=== PATIENT | male | born 1930 | race Hispanic/Latino ===

== ENCOUNTER 2018-04-14 08:47 | Inpatient (IN) | payer MEDICARE, OTHER ==
[~2018-04-14] VITALS: Ht 147.3 cm; Wt 61.7 kg
[~2018-04-14 08:47] MED LIST: ACYCLOVIR400 MG PO; GABAPENTIN300 MG PO; LOSARTAN-HCTZ1 EACH PO
[2018-04-14 09:56] LABS: BASOPHILS % 0.2 % (0.0-1.0); EOSINOPHILS % 0.1 % (0.0-6.0); HEMATOCRIT 40.8 % (38.2-49.6); HEMOGLOBIN 13.5 g/dL (14.0-18.0); MEAN CORPUSCULAR HEMOGLOBIN 29.2 pg (28-32); MEAN CORPUSCULAR HGB CONC 33.1 g/dL (31-35); MEAN CORPUSCULAR VOLUME 88.3 fL (81-99); MONOCYTES # (AUTO) 1.1 (0.2-0.8); MONOCYTES % 6.6 % (4.4-11.3); NEUTROPHILS # (AUTO) 14.1 (2.1-6.9); NEUTROPHILS % 86.6 % (38.7-80.0); PLATELET COUNT 135 x10e3/uL (140-360); RED BLOOD COUNT 4.62 x10e6/uL (4.3-5.7); RED CELL DISTRIBUTION WIDTH 13.6 % (11.7-14.4)
[2018-04-14 10:15] LABS: ALBUMIN 3.3 g/dL (3.5-5.0); ALBUMIN/GLOBULIN RATIO 0.7 (0.8-2.0); ANION GAP 20.8 mmol/L (8-16); CALCIUM 10.2 mg/dL (8.4-10.2); CREATININE, SERUM 2.62 mg/dL (0.72-1.25); POTASSIUM 4.8 mmol/L (3.5-5.1)
[2018-04-14 10:22] LABS: CREATINE KINASE MB 1.2 ng/mL (0-5.0)
--- NOTE | 2018-04-14 10:38 | Diagnostic Imaging Report ---
PROCEDURE: X-RAY CHEST, TWO VIEWS COMPARISON: None. INDICATIONS: SOB TODAY FINDINGS: The lungs are hyperinflated with flattening of diaphragms and increased AP diameter of the chest. No focal consolidation, pleural effusion, or pneumothorax. Coarse diffuse prominence of the pulmonary interstitium. Prominence of the central pulmonary arteries; tortuosity and atherosclerotic calcification of the thoracic aorta. Normal heart size. No acute osseous abnormality. CONCLUSION: No acute cardiopulmonary abnormality. Pulmonary hyperinflation suggestive of COPD with associated probably chronic age-related fibrotic changes. Dictated by: Scott Wilder M.D. on 04/14/2018 at 10:40 Electronically approved by: Scott Wilder M.D. on 04/14/2018 at 10:40
[2018-04-14 13:55] LABS: CLARITY,URINE HAZY (CLEAR); COLOR,URINE YELLOW (YELLOW); LEUKOCYTE ESTERASE ,URINE NEGATIVE (NEGATIVE); NITRITE,URINE NEGATIVE (NEGATIVE); PROTEIN,URINE DIPSTICK NEGATIVE (NEGATIVE)
[2018-04-14 13:56] LABS: BILIRUBIN,URINE 1+ (NEGATIVE); KETONES,URINE TRACE (NEGATIVE); URINE UROBILINOGEN 0.2 mg/dL (0.2 - 1)
[2018-04-14 14:15] LABS: AMORPHOUS SEDIMENT,URINE MODERATE (FEW); BACTERIA,URINE FEW /HPF; EPITHELIAL CELLS,URINE MODERATE /LPF; WBC,URINE (MAN) 0-5 /HPF (0-5)
--- OUTSIDE RECORDS SUMMARY | 2018-04-14 15:15 | XMS REPORT ---
Author Author [facility] Address Unknown Phone Unavailable Care Team Providers Care Endocrinologist Name Role Phone OMER HANSON Unavailable Unavailable Problems This patient has no known problems. Allergies, Adverse Reactions, Alerts This patient has no known allergies or adverse reactions. Medications This patient has no known medications. Results Test Description Test Time Test Comments Text Results Atomic Results Result Comments CHEST 2 VIEWS [place] [address] Patient Name: VALENCIA SLATER MR #: [id number] : 1930 Age/Sex: 87/M Req #: [id number] Adm Physician: Ordered by: OMER HANSON MD Report #: [id number] Location: ER Room/Bed: Procedure: [id number] DX/CHEST 2 VIEWS Exam Date: 04/14/18 Exam Time: 1000 REPORT STATUS: Signed PROCEDURE: X-RAY CHEST, TWO VIEWS COMPARISON: None. INDICATIONS: SOB TODAY FINDINGS: The lungs are hyperinflated with flattening of diaphragms and increased AP diameter of the chest. No focal consolidation, pleural effusion, or pneumothorax. Coarse diffuse prominence of the pulmonary interstitium. Prominence of the central pulmonary arteries; tortuosity and atherosclerotic calcification of the thoracic aorta. Normal heart size. No acute osseous abnormality. CONCLUSION: No acute cardiopulmonary abnormality. Pulmonary hyperinflation suggestive of COPD with associated probably chronic age-related fibrotic changes. Dictated by: Supriya Wilder M.D. on at 10:40 Electronically approved by: Supriya Wilder M.D. on 2017 at 10:40 Dictated By: SUPRIYA WILDER MD 1040 Transcribed By: PETER on 04/14/18 1040 COPY TO: OMER HANSON MD
--- NOTE | 2018-04-14 15:57 | History and Physical ---
Mr. Webb is an 87-year-old man with a history of dementia, urinary incontinence, BPH, hypertension, hyperlipidemia. He was brought to the emergency room because of a 2-week history of cough with phlegm, decreased appetite and weight loss in the last couple of weeks. PAST MEDICAL HISTORY: The patient has hypertension, dementia, urinary incontinence, hyperlipidemia, reflux and BPH. SOCIAL HISTORY: He lives at home alone. He does not smoke, and he does not drink. SURGICAL HISTORY: He had eye surgery in the past. ALLERGIES: NO KNOWN DRUG ALLERGIES. PHYSICAL EXAMINATION GENERAL: Today, he is awake and alert. VITALS: Temperature is 97.8. Blood pressure is 94/55. The heart is regular rate. O2 oxygenation is 98% with nasal cannula. LUNGS: Decreased breath sounds bilaterally. ABDOMEN: Soft but with some positive lower extremity edema. No erythema. BLOOD WORK: White count 16.25, hemoglobin 13.5, hematocrit 40.8. Sodium 125, creatinine 2.62, GFR 23, BUN 83, glucose 130. Urine shows 0-5 white blood cells. Chest x-ray shows no acute findings. ASSESSMENT AND PLAN 1. Failure to thrive. 2. Dehydration. 3. Acute renal failure. 4. Leukocytosis. 5. Weight loss. 6. Cough and phlegm. 7. Hypertension. 8. Dementia. 9. BPH. 10. At the present time, the patient is a little hypotensive. The plan at the present time is to hold all the blood pressure medications. Put the patient empirically on IV antibiotics. Repeat CBC. Nephrology consult with Dr. Pierce and ID consult with Dr. Bella. All of this was discussed with the patient and daughter at bedside. All questions were answered to satisfaction. Job#: [id number]
[2018-04-14 16:45] VITALS: BP 103/50
[2018-04-14 16:47] VITALS: BP 103/50
[2018-04-14 16:52] VITALS: BP 103/50
[2018-04-14 16:56] VITALS: BP 103/50
[2018-04-14] MEDS ORDERED: DOXAZOSIN MESYLA2 MG PO (17:00)
[2018-04-14] MEDS ORDERED: NAMENDA10 MG PO (17:00)
[2018-04-14] MEDS ORDERED: OMEPRAZOLE40 MG PO (17:00)
[2018-04-14] MEDS ORDERED: TAMSULOSIN HCL0.4 MG PO (17:00)
[2018-04-14] MEDS ORDERED: LOSARTAN POTASS25 MG PO (17:02)
[2018-04-14] MEDS ORDERED: FINASTERIDE5 MG PO (17:02)
[2018-04-14] MEDS ORDERED: OXYBUTYNIN CHLOR5 MG PO (17:02)
[2018-04-14] MEDS: SODIUM CHLORIDE 0.9% 1000ML 1,000 ML IV SCH (17:11)
[2018-04-14] MEDS ORDERED: DIATRIZOATE MEGL/DIATRIZOA SOD 30 ML BTL PO ONE (18:00)
[2018-04-14 18:21] LABS: AMYLASE 81 U/L (25-125); LIPASE 37 U/L (8-78)
[2018-04-14] MEDS: CEFTRIAXONE SOD 1 GM VIAL IV SCH (18:25)
[2018-04-14 20:00] VITALS: BP 94/50
[2018-04-15] VITALS (8 sets, daily range): BP systolic 94–109; BP diastolic 46–64
--- NOTE | 2018-04-15 02:03 | Diagnostic Imaging Report ---
EXAM: CT Abdomen and Pelvis WITHOUT contrast INDICATION: Bronchitis, dehydration, abdominal infection COMPARISON: None. TECHNIQUE: Abdomen and pelvis were scanned utilizing a multidetector helical scanner from the lung base to the pubic symphysis without administration of IV contrast. Absence of intravenous contrast decreases sensitivity for detection of focal lesions and vascular pathology. Coronal and sagittal reformations were obtained. Stone protocol is performed. IV CONTRAST: None. ORAL CONTRAST: Gastrografin RADIATION DOSE: Total DLP: 226.07 mGy*cm Estimated effective dose: (DLP x 0.015 x size factor) mSv COMPLICATIONS: None FINDINGS: LINES and TUBES: None. LOWER THORAX: Patchy interstitial and alveolar opacities predominantly in the lung bases. Heavy calcification involving the mitral valve. HEPATOBILIARY: No focal hepatic lesions. No biliary ductal dilation. Biliary air is present. This finding can be seen in patients with cholecystectomy and prior ampulla resection. GALLBLADDER: There are cholecystectomy clips. SPLEEN: No splenomegaly. PANCREAS: No focal masses or ductal dilatation. ADRENALS: No adrenal nodules KIDNEYS/URETERS: No hydronephrosis. No cystic or solid mass lesions. 3.7 mm stone in the inferior renal collecting system of the left kidney. GI TRACT: No abnormal distention, wall thickening, or evidence of bowel obstruction. There are diverticula within the colon without evidence of diverticulitis. Appendix is normal. PELVIC ORGANS/BLADDER: Prostatomegaly. LYMPH NODES: No lymphadenopathy. VESSELS: There is moderate atherosclerotic disease in the aorta and major arterial branches. PERITONEUM / RETROPERITONEUM: No free air or fluid. BONES: There are degenerative changes in the lumbar spine. SOFT TISSUES: Right fat containing direct inguinal hernia. IMPRESSION: 1. Left-sided nephrolithiasis without hydronephrosis. 2. Prostatomegaly. 3. Moderate atherosclerotic disease of the thoracoabdominal aorta and branches. 4. Patchy interstitial and alveolar opacities in the lung bases are indeterminate but may be related to atelectasis or infection. Signed by: Dr. Trung Robertson M.D. on 04/15/2018 1:59 AM
[2018-04-15] MEDS: SODIUM CHLORIDE 0.9% 1000ML 1,000 ML IV SCH ×2 (04:25→12:23)
[2018-04-15 06:30] LABS: ANION GAP 12.5 mmol/L (8-16); CALCIUM 8.5 mg/dL (8.4-10.2); CREATININE, SERUM 1.79 mg/dL (0.72-1.25); POTASSIUM 4.5 mmol/L (3.5-5.1)
[2018-04-15 09:29] LABS: BASOPHILS % 0.4 % (0.0-1.0); EOSINOPHILS # (AUTO) 0.2 (0.0-0.4); EOSINOPHILS % 2.4 % (0.0-6.0); HEMATOCRIT 29.7 % (38.2-49.6); HEMOGLOBIN 9.6 g/dL (14.0-18.0); LYMPHOCYTES # (AUTO) 1.5 (1.0-3.2); LYMPHOCYTES % 18.6 % (18.0-39.1); MEAN CORPUSCULAR HEMOGLOBIN 28.8 pg (28-32); MEAN CORPUSCULAR HGB CONC 32.3 g/dL (31-35); MEAN CORPUSCULAR VOLUME 89.2 fL (81-99); MONOCYTES # (AUTO) 0.8 (0.2-0.8); MONOCYTES % 10.7 % (4.4-11.3); NEUTROPHILS # (AUTO) 5.3 (2.1-6.9); NEUTROPHILS % 67.6 % (38.7-80.0); PLATELET COUNT 100 x10e3/uL (140-360); RED BLOOD COUNT 3.33 x10e6/uL (4.3-5.7); RED CELL DISTRIBUTION WIDTH 13.9 % (11.7-14.4)
--- NOTE | 2018-04-15 10:34 | Progress Note ---
DATE: April 15, 2018 SUBJECTIVE: Mr. Webb is an 87-year-old man with history of dementia, urinary incontinence, BPH, hypertension, hyperlipidemia, came to the emergency room with 2 weeks history of cough with phlegm, decreased appetite, and weight loss. PHYSICAL EXAMINATION: GENERAL: Today, he is more awake and alert. VITAL SIGNS: Temperature is 97, blood pressure 97/46. HEART: Regular rate. LUNGS: Poor inspiratory effort. ABDOMEN: Soft. BLOOD WORK: Potassium is 4.5, creatinine is 1.79, glucose is 90. White count is 16.2, hemoglobin is 13.5, hematocrit is 40.8, platelets 125,000. Urine showed 0 to 5 white blood cells. Urine culture and blood cultures are pending. Chest x-ray showed no acute finding. Abdominal and pelvic CT showed left-sided nephrolithiasis without hydronephrosis, prostatomegaly, atherosclerosis, patchy interstitial and alveolar opacities of the lung bases that probably could be pneumonia. ASSESSMENT: 1. Failure to thrive. 2. Dehydration. 3. Acute renal failure. 4. Leukocytosis. 5. Weight loss. 6. Probable pneumonia. 7. History of hypertension, patient is hypotensive. 8. Dementia. 9. Benign prostatic hypertrophy. PLAN: At present time is to hold all the blood pressure medications. Continue IV antibiotics. Continue to monitor white count. Infectious disease and a nephrology consult were requested for the patient. All this was discussed with patient and family. All questions were answered to satisfaction. Job#: [id number]
[2018-04-15] MEDS: CEFTRIAXONE SOD 1 GM VIAL IV SCH (17:52)
[2018-04-16] VITALS (8 sets, daily range): BP systolic 101–142; BP diastolic 43–84
[2018-04-16] MEDS: SODIUM CHLORIDE 0.9% 1000ML 1,000 ML IV SCH ×3 (00:19→16:27)
--- NOTE | 2018-04-16 10:25 | Consultation ---
DATE OF CONSULTATION: April 14, 2018 REASON FOR CONSULTATION: UTI. HISTORY OF PRESENT ILLNESS: This is an 87-year-old male with history of dementia, urinary incontinence, benign prostatic hypertrophy, hypertension, hyperlipidemia. According to the family for the last 2 weeks she has not been feeling well, not eating well. Getting more and more weaker and bed bound, which was not really his case. The patient was brought to the emergency room, In the emergency room, he had a white count of 16.25, hemoglobin 13, sodium 135, potassium 4.5, creatinine 2.62. The patient was admitted. His urine was positive for bilirubin and epithelial cells. His chest x-ray showed no acute finding, but he does have underlying COPD. The patient is currently alert, follows simple commands, does not seem to be in acute distress. PHYSICAL EXAMINATION: VITALS: Stable and currently afebrile. HEENT: Not icteric. NECK: Supple. CHEST: Clear. HEART: No murmur. ABDOMEN: Soft. Positive bowel sounds. EXTREMITIES: No edema. SKIN: No rash. IMPRESSION: 1. Altered mental status. 2. Leukocytosis. Source is unclear. It could be urinary tract infection versus other. PLAN: Will get blood cultures, urine cultures. Obtain CT of the abdomen and pelvis with oral contrast only. Check CBC and check chem panel, check amylase and lipase. Discussed with the family. Will follow. Job#: [id number]
--- NOTE | 2018-04-16 10:30 | Progress Note ---
DATE: April 16, 2018 SUBJECTIVE: Mr. Webb is an 87-year-old man with history of urinary incontinence, BPH, hypertension, hyperlipidemia, and dementia. He came to the emergency room with cough and phlegm, weight loss, and decreased appetite. At the present time, he is doing a little better. He is eating a little better. PHYSICAL EXAMINATION VITAL SIGNS: Temperature is 97.6, blood pressure 125/63. HEART: Regular rate at 82 per minute. LUNGS: Clear to auscultation. ABDOMEN: Soft. LABS: On the blood work, potassium is 4.5. Creatinine went down to 1.79. Glucose is 90. White count is 7.85, hemoglobin 9.6, hematocrit 29.7. Chest x-ray shows no acute findings. Abdominal and pelvic CT shows prostatomegaly, patchy interstitial and alveolar opacities of the lungs. ASSESSMENT AND PLAN 1. Failure to thrive. 2. Dehydration. 3. Acute renal failure. 4. Leukocytosis. 5. Weight loss. 6. Probable pneumonia. 7. History of hypertension. He has been hypotensive. He is doing better. 8. Dementia. 9. BPH. 10. Anemia. The plan at the present time is to continue the patient on IV antibiotics. White count now is normal. Creatinine went down to 1.79. We are going to do stool guaiac because the patient is also anemic. Discussed with daughter. She wants vocational case manager evaluation for probable care home placement. Continue to monitor for any fever and hypertension. All of this was discussed with the daughter at bedside, and all questions were answered to satisfaction. Job#: [id number]
[2018-04-16] MEDS: CEFTRIAXONE SOD 1 GM VIAL IV SCH (18:58)
[2018-04-16 19:00] LABS: FERRITIN 608.68 ng/mL (21.81-274.66)
[2018-04-17] VITALS (7 sets, daily range): BP systolic 113–166; BP diastolic 55–77
--- NOTE | 2018-04-17 00:49 | Consultation ---
DATE OF CONSULTATION: April 16, 2018 HISTORY: Patient is an 87-year-old male with past medical history of dementia, urinary incontinence, hypertension, hyperlipidemia, and BPH, GERD, who was brought to the emergency room yesterday due to 2-week history of cough as well as weight loss and decreased appetite. Daughter is in the room and majority of the history was taken from the daughter. She states that he has not been eating much and has lost about 10 pounds. She denies noticing any signs of bleeding such as melena, hematochezia, or hematemesis. He denies any abdominal pain, chest pain, or shortness of breath. She states that he has been dehydrated and feeling weak. She denies noticing him having any EGD or colonoscopies in the past. PAST MEDICAL HISTORY: Hypertension, dementia, urinary incontinence, GERD, BPH, hyperlipidemia. SOCIAL HISTORY: He lives at home by himself without any care. There is no history of smoking or drinking. However, she does mention he was a former smoker and does not recall how much he smoked in the past. SURGICAL HISTORY: He has had a cataract surgery. ALLERGIES: NO KNOWN DRUG ALLERGIES. REVIEW OF SYSTEMS: Denies any chest pain, abdominal pain, dysuria, dysphagia, hematemesis, melena, or hematochezia. PHYSICAL EXAMINATION: GENERAL: Alert, disoriented. VITAL SIGNS: Temperature 96.6, pulse 51, blood pressure 106/47, pulse ox 95. LUNGS: Decreased breath sounds bilaterally. ABDOMEN: Soft. Bowel sounds active. Nontender. No mass or herniations. NEUROLOGY: Alert, but disoriented. EXTREMITIES: No edema, no cyanosis. PSYCH: Unable to assess. LABS: Patient has a white count of 7.8, hemoglobin dropped from 13.5 to 9.6, MCV of 89. Sodium of 132, anion gap 12.5, creatinine is 1.79, albumin is 3.3, AST 9, ALT is 10. IMAGING REVIEW: Abdominal CT showed left-sided nephrolithiasis, however, no GI abnormalities noted. Chest x-ray showed no acute findings. ASSESSMENT: 1. Anemia--drop in hemoglobin. 2. Failure to thrive. 3. Dehydration. 4. Acute renal failure. 5. Weight loss. 6. Dementia. PLAN: At this point, the patient's hemoglobin is stable. We will monitor closely. We will go ahead and order iron studies to figure out what is causing the anemia. Fecal occult blood is pending. Once we have results, we can further assess the need for endoscopy. Thank you for consulting me. Will follow. Dictated By: Edita Jacobo PA-C Job#: [id number]
[2018-04-17] MEDS: SODIUM CHLORIDE 0.9% 1000ML 1,000 ML IV SCH ×3 (02:16→23:00)
[2018-04-17 06:48] LABS: HEMATOCRIT 29.7 % (38.2-49.6); HEMOGLOBIN 9.7 g/dL (14.0-18.0); MEAN CORPUSCULAR HGB CONC 32.7 g/dL (31-35); MEAN CORPUSCULAR VOLUME 88.7 fL (81-99); PLATELET COUNT 97 x10e3/uL (140-360); RED BLOOD COUNT 3.35 x10e6/uL (4.3-5.7); RED CELL DISTRIBUTION WIDTH 13.7 % (11.7-14.4)
[2018-04-17 07:26] LABS: BLOOD UREA NITROGEN 22 mg/dL (7-26); BUN/CREATININE RATIO 24 (6-25); CALCIUM 8.5 mg/dL (8.4-10.2); CARBON DIOXIDE 22 mmol/L (22-29); CHLORIDE 109 mmol/L (98-107); EST GLOMERULAR FILTRATION RATE > 60 ML/MIN (60-); GLUCOSE 83 mg/dL (74-118); SODIUM 138 mmol/L (136-145)
[2018-04-17 07:41] LABS: EOSINOPHILS % (MANUAL) 3 % (0-7); LYMPHOCYTES % (MANUAL) 14 % (19-48); MONOCYTES % (MANUAL) 11 % (3.4-9.0); NEUTROPHILS % (MANUAL) 72 % (40-74)
[2018-04-17 07:42] LABS: HYPOCHROMASIA SLIGHT; PLATELET ESTIMATE SLIGHTLY DECREASED; PLATELET MORPHOLOGY COMMENT FEW LARGE; RBC MORPHOLOGY COMMENT NORMAL
[2018-04-17] MEDS ORDERED: BISACODYL 5 MG TAB EC PO ONE (09:00)
[2018-04-17] MEDS ORDERED: PEG (High)/E-LYTE SOLN 4,000 ML BTL PO ONE (09:00)
--- NOTE | 2018-04-17 09:52 | Progress Note ---
DATE: April 17, 2018 SUBJECTIVE: Patient is not eating, denying any abdominal pain. He has not had any bowel movement as well. REVIEW OF SYSTEMS GENERAL: No fever or chills. RESPIRATORY: No cough or expectoration. CVS: No chest pain or palpitations. INPATIENT MEDICATIONS: Reviewed as per MAR. PHYSICAL EXAMINATION VITAL SIGNS: Temperature 98, pulse 56, respirations 20, blood pressure 143/77, oxygen saturation 97% on room air. GENERAL: Not in any acute distress, sitting up. HEENT: Oral mucosa is moist. Anicteric sclerae. CVS: S1 and S2 regular. LUNGS: Grossly clear. ABDOMEN: Soft. Nondistended and nontender. No mass or hernia. Positive bowel sounds. EXTREMITIES: Warm. No leg edema. LABS: WBC 4.8, hemoglobin 9.7 which is up from 9.6, hematocrit 29.7, platelet count 97. Sodium 138, potassium 4.0, chloride 109, bicarb 22, BUN 22, creatinine 0.90. IMPRESSION 1. Anemia without any gross gastrointestinal bleeding. Hemoglobin initially dropped from 13.5 to 9.6, likely due to hemoconcentration, which resolved with IV fluid hydration. So the patient has anemia at baseline to begin with. Iron profile is not consistent with iron deficiency. However, anemia can be multifactorial. It seems like the patient most likely has anemia of chronic disease. 2. 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 3. Acute urinary retention, likely related to medication. He is status post Gomez insertion. 4. The patient is also on ceftriaxone for probability of pneumonia. PLAN: From GI standpoint, I will put him on a clear liquid diet tonight and bowel prep. EGD and colonoscopy tomorrow to rule out any source of blood loss contributing to anemia. I discussed the risks, benefits and alternatives including doing nothing with the patient's daughter visiting at the bedside. Job#: [id number]
--- NOTE | 2018-04-17 09:55 | Progress Note ---
DATE: April 17, 2018 Mr. Webb is an 87-year-old man with a history of urinary incontinence, BPH, hypertension, hyperlipidemia, dementia, came to the emergency room with cough, weight loss and decreased appetite. He was found to be anemic. He is going to go for an EGD and colonoscopy. The patient is having trouble urinating. We are going to put in a Gomez catheter and request a urology consult for him. fur floor worker was consulted for placement of this patient. PHYSICAL EXAMINATION GENERAL: He is awake and alert. VITALS: Temperature is 98.8, blood pressure 143/77. HEART: Regular rate. LUNGS: Poor inspiratory effort. ABDOMEN: Soft. BLOOD WORK: Potassium 4, creatinine is 0.9, glucose is 83. White count is 4.87, hemoglobin 9.7, hematocrit 29.7. ASSESSMENT AND PLAN 1. Failure to thrive. 2. Dehydration. 3. Acute renal failure. 4. Leukocytosis. 5. Weight loss. 6. Anemia. 7. Pneumonia. 8. History of hypertension. 9. Dementia. 10. BPH. PLAN: At the present time, is the patient is having urinary retention. We are going to put in a Gomez catheter and get a urology consult. He also does not have any appetite. He is losing weight. He does not want to eat. He is anemic. He is going to have an EGD and colonoscopy done. We are going to continue IV antibiotics. Discussed with the case maker regarding placement. Continue IV antibiotics. All of this was discussed with the patient and daughter at bedside. All questions were answered to satisfaction. Job#: [id number] NORBERTO
[2018-04-17] MEDS: CEFTRIAXONE SOD 1 GM VIAL IV SCH (17:32)
[2018-04-17] MEDS ORDERED: PEG (High)/E-LYTE SOLN 4,000 ML BTL PO SCH (19:00)
[2018-04-18] VITALS (8 sets, daily range): BP systolic 127–162; BP diastolic 64–70
[2018-04-18] MEDS: SODIUM CHLORIDE 0.9% 1000ML 1,000 ML IV SCH (09:46)
--- NOTE | 2018-04-18 10:06 | Progress Note ---
DATE: April 18, 2018 SUBJECTIVE: Mr. Webb is an 87-year-old man with history of BPH, hypertension, hyperlipidemia and dementia. He came to the emergency room with cough, weight loss and decreased appetite. He was found to be anemic. He is going to go for EGD and colonoscopy today. He had urinary retention and required a Gomez catheter. At the present time, the patient is sleeping and in no acute distress. PHYSICAL EXAMINATION VITAL SIGNS: Temperature 98.2, blood pressure 127/64. HEART: Regular rate. LUNGS: Poor inspiratory effort. ABDOMEN: Soft. LABS: On the blood work, potassium is 4.0, creatinine 0.90, glucose 83. WBC 5.81, hemoglobin 9.7, hematocrit 29.7. ASSESSMENT AND PLAN 1. Failure to thrive. 2. Dehydration, resolving. 3. Acute renal failure, resolved. 4. Leukocytosis, resolved. 5. Weight loss. 6. Anemia. 7. Pneumonia. 8. History of hypertension. 9. Dementia. 10. BPH with urinary retention. The plan at the present time is the patient is going to go for EGD and colonoscopy. He has a Gomez catheter. We are going to discuss with Dr. Navarro regarding his urinary retention and continue his BPH medications. Continue IV antibiotics. Daughter wants the patient to go to SNF and probably stay in a group home. She is going to go visit some places. All of this was discussed with daughter a bedside, and all questions were answered to satisfaction. Job#: [id number]
[2018-04-18] MEDS: CEFTRIAXONE SOD 1 GM VIAL IV SCH (17:42)
[2018-04-19] VITALS (8 sets, daily range): BP systolic 123–155; BP diastolic 18–70
[2018-04-19] MEDS: PANTOPRAZOLE SOD 40 MG TABEC PO SCH (08:45)
[2018-04-19 10:47] LABS: BASOPHILS % 0.4 % (0.0-1.0); EOSINOPHILS # (AUTO) 0.1 (0.0-0.4); EOSINOPHILS % 2.1 % (0.0-6.0); HEMATOCRIT 32.1 % (38.2-49.6); HEMOGLOBIN 10.4 g/dL (14.0-18.0); LYMPHOCYTES % 17.2 % (18.0-39.1); MEAN CORPUSCULAR HEMOGLOBIN 28.7 pg (28-32); MEAN CORPUSCULAR HGB CONC 32.4 g/dL (31-35); MEAN CORPUSCULAR VOLUME 88.4 fL (81-99); MONOCYTES # (AUTO) 0.7 (0.2-0.8); MONOCYTES % 11.7 % (4.4-11.3); NEUTROPHILS # (AUTO) 3.8 (2.1-6.9); NEUTROPHILS % 68.2 % (38.7-80.0); PLATELET COUNT 106 x10e3/uL (140-360); RED BLOOD COUNT 3.63 x10e6/uL (4.3-5.7); RED CELL DISTRIBUTION WIDTH 13.8 % (11.7-14.4)
[2018-04-19] MEDS: SODIUM CHLORIDE 0.9% 1000ML 1,000 ML IV SCH ×2 (12:11→23:14)
[2018-04-19 13:08] LABS: ALANINE AMINOTRANSFERASE 9 IU/L (0-55); ALBUMIN 2.7 g/dL (3.5-5.0); ALBUMIN/GLOBULIN RATIO 0.8 (0.8-2.0); ALKALINE PHOSPHATASE 54 IU/L (40-150); ANION GAP 12.7 mmol/L (8-16); BLOOD UREA NITROGEN 8 mg/dL (7-26); BUN/CREATININE RATIO 9 (6-25); CALCIUM 8.4 mg/dL (8.4-10.2); CARBON DIOXIDE 19 mmol/L (22-29); CHLORIDE 109 mmol/L (98-107); CREATININE, SERUM 0.85 mg/dL (0.72-1.25); EST GLOMERULAR FILTRATION RATE > 60 ML/MIN (60-); GLUCOSE 145 mg/dL (74-118); POTASSIUM 3.7 mmol/L (3.5-5.1); SODIUM 137 mmol/L (136-145)
[2018-04-19] MEDS: CEFTRIAXONE SOD 1 GM VIAL IV SCH (17:28)
[2018-04-20] VITALS (8 sets, daily range): BP systolic 120–156; BP diastolic 58–77
[2018-04-20] MEDS: SODIUM CHLORIDE 0.9% 1000ML 1,000 ML IV SCH ×2 (01:00→15:03)
[2018-04-20 07:10] LABS: BASOPHILS % 0.3 % (0.0-1.0); EOSINOPHILS # (AUTO) 0.2 (0.0-0.4); HEMATOCRIT 30.4 % (38.2-49.6); HEMOGLOBIN 9.7 g/dL (14.0-18.0); LYMPHOCYTES # (AUTO) 1.3 (1.0-3.2); LYMPHOCYTES % 21.6 % (18.0-39.1); MEAN CORPUSCULAR HEMOGLOBIN 28.5 pg (28-32); MEAN CORPUSCULAR HGB CONC 31.9 g/dL (31-35); MEAN CORPUSCULAR VOLUME 89.4 fL (81-99); MONOCYTES # (AUTO) 0.9 (0.2-0.8); MONOCYTES % 15.4 % (4.4-11.3); NEUTROPHILS # (AUTO) 3.5 (2.1-6.9); NEUTROPHILS % 58.4 % (38.7-80.0); PLATELET COUNT 106 x10e3/uL (140-360)
[2018-04-20 07:19] LABS: ALANINE AMINOTRANSFERASE 9 IU/L (0-55); ALBUMIN 2.6 g/dL (3.5-5.0); ALBUMIN/GLOBULIN RATIO 0.9 (0.8-2.0); ALKALINE PHOSPHATASE 58 IU/L (40-150); ANION GAP 11.7 mmol/L (8-16); BLOOD UREA NITROGEN 5 mg/dL (7-26); BUN/CREATININE RATIO 6 (6-25); CALCIUM 8.4 mg/dL (8.4-10.2); CARBON DIOXIDE 21 mmol/L (22-29); CHLORIDE 110 mmol/L (98-107); CREATININE, SERUM 0.77 mg/dL (0.72-1.25); EST GLOMERULAR FILTRATION RATE > 60 ML/MIN (60-); GLUCOSE 89 mg/dL (74-118); POTASSIUM 3.7 mmol/L (3.5-5.1); SODIUM 139 mmol/L (136-145)
[2018-04-20] MEDS: PANTOPRAZOLE SOD 40 MG TABEC PO SCH (07:30)
[2018-04-20] MEDS: CEFTRIAXONE SOD 1 GM VIAL IV SCH (18:27)
[2018-04-21] VITALS (7 sets, daily range): BP systolic 128–162; BP diastolic 63–72
[2018-04-21] MEDS: PANTOPRAZOLE SOD 40 MG TABEC PO SCH (08:44)
--- NOTE | 2018-04-21 11:08 | Discharge Summary ---
Mr. Webb is an 87-year-old man with history of BPH, hypertension, hyperlipidemia, and dementia. He came to the emergency room with weight loss, decreased appetite, urinary retention. He was seen by the urologist that recommended he go to SNF with a Gomez catheter. The patient went for EGD that showed esophagitis, gastritis, hiatal hernia and esophageal diverticulum. At the present time, he is doing better. He is eating better. Temperature is 97.5, blood pressure 155/70. The heart has regular rhythm. Lungs are clear to auscultation. Abdomen is soft. On the blood work, the white count is 6.02, hemoglobin 9.7, hematocrit 30.4. Potassium 3.7, creatinine 0.77. Abdominal and pelvic CT done on admission showed left-sided nephrolithiasis without hydronephrosis, prostatomegaly, and some infiltration in the lung bases. DISCHARGE DIAGNOSES 1. Failure to thrive, improving. 2. Dehydration. 3. Acute renal failure, resolved. 4. Leukocytosis, resolved. 5. Weight loss. 6. Anemia, status post gastrointestinal workup. 7. Pneumonia. 8. History of hypertension. Came with hypotension, but this is better. 9. Dementia. 10. BPH with urinary retention. PLAN: At the present time, the patient went for EGD that showed esophagitis, esophageal diverticulum, hiatal hernia and gastritis. He also had a colonoscopy that showed diverticulosis, colonic polyps, uncomplicated internal and external hemorrhoids. He had a Gomez catheter placed for urinary retention. The plan at the present time is to send the patient to SNF. Daughter is aware of this, and she is agreeable with SNF if the patient gets discharged. Please see home medication reconciliation list. All of this was discussed with the patient and daughter at bedside, and all questions were answered to satisfaction. JAMES TOLBERT MD Job#: [id number]
[2018-04-21] MEDS: SODIUM CHLORIDE 0.9% 1000ML 1,000 ML IV SCH (13:17)
--- NOTE | 2018-04-21 18:14 | Diagnostic Imaging Report ---
PROCEDURE:X-RAY MODIFIED BARIUM SWALLOW COMPARISON:None. INDICATIONS:Bronchitis DISCUSSION:Fluoroscopic examination was performed in conjunction with speech pathology, during swallowing of a variety of thin and thick liquid consistencies. Fluoroscopy time: 54 seconds Cumulative air kerma : 2.79 mGy CONCLUSION:No penetration or aspiration. Please see the report from speech pathology for complete details. Dictated by: Lisandro Molina M.D. on 04/21/2018 at 18:17 Electronically approved by: Lisandro Molina M.D. on 04/21/2018 at 18:17
--- NOTE | 2018-04-21 20:15 | Progress Note ---
DATE: April 21, 2018 SUBJECTIVE: No active GI complaints. Tolerating oral foods. Regular bowel movements. REVIEW OF SYSTEMS: CVS: No chest pain or palpitation. GENERAL: No fever or chills. RESPIRATORY: No cough or expectoration. MEDICATIONS: Reviewed as per JAN. PHYSICAL EXAMINATION VITAL SIGNS: Temperature 98.3, pulse 64, respirations 18 to 20, blood pressure 144/60, oxygen saturation 100% on room air. GENERAL: Not in any acute distress. HEENT: Moist mucous membrane. Anicteric sclerae. NECK: No neck axillary adenopathy. CVS: S1 and S2 regular. LUNGS: Bilaterally grossly clear. ABDOMEN: Soft, nondistended, nontender, no mass or hernia. EXTREMITIES: Warm. No leg edema. LABS: Hemoglobin 10.4 on 04/19/2018, dropped down to 9.7. Modified barium swallow done today showed no penetration or aspiration. IMPRESSION: Anemia of chronic disease. Upper endoscopy as well as colonoscopy performed by my associate, Dr. Diego. The endoscopy did not reveal any source of blood loss. PLAN: Continue present management. Patient can be discharged home from GI standpoint. Job#: [id number]
[2018-04-22] VITALS: BP 140/63
[2018-04-22] MEDS: SODIUM CHLORIDE 0.9% 1000ML 1,000 ML IV SCH ×2 (03:28→16:00)
[2018-04-22 04:00] VITALS: BP 153/69
[2018-04-22] MEDS: PANTOPRAZOLE SOD 40 MG TABEC PO SCH (07:50)
[2018-04-22 08:25] VITALS: BP 126/62
--- NOTE | 2018-04-22 09:56 | Discharge Summary ---
Mr. Webb is an 87-year-old man with history of BPH, hypertension, hyperlipidemia, dementia, came to the emergency room with decreased appetite, weight loss. Had an EGD that showed esophagitis, gastritis and esophageal diverticulum. He was found to have urinary tract infection. Had a Gomez catheter placed, and was seen by urologist. He is going to need to follow up as an outpatient. PHYSICAL EXAMINATION GENERAL: Today, the patient is sleeping. No acute distress. VITALS: Temperature is 97.4, blood pressure 126/62. HEART: Regular rate. LUNGS: Poor inspiratory effort. ABDOMEN: Soft. BLOOD WOUND: White count is 6.02, hemoglobin 9.7, hematocrit 30.4. Sodium 139, creatinine is 0.77. Stool guaiac was negative. All the cultures were negative. The modified barium swallow showed no penetration or aspiration. DISCHARGE DIAGNOSES 1. Failure to thrive, improving. 2. Dehydration, improved. 3. Acute renal failure, resolved. 4. Leukocytosis, resolved. 5. Weight loss. 6. Anemia, status post gastrointestinal workup. 7. Pneumonia, on intravenous antibiotics. 8. History of hypertension. 9. BPH with urinary retention. 10. Dementia. PLAN: At the present time, is to continue ADA diet for the patient. Encourage intake. Had a GI workup done. Has a Gomez catheter for urinary retention. He is going to go to SNF with the catheter. We are awaiting placement at the present time. All of this was discussed with daughter at bedside. All questions were answered to satisfaction. JAMES TOLBERT MD Job#: [id number] [place]
[2018-04-22 12:00] VITALS: BP 129/59
[2018-04-22 16:22] VITALS: BP 157/72
[2018-04-22] MEDS ORDERED: HYDROCHLOROTH12.5 M1 PO (16:55)
[2018-04-22] MEDS ORDERED: MEMANTINE 10 MG TAB PO SCH (17:00)
[2018-04-22] MEDS ORDERED: GABAPENTIN 300 MG CAP PO SCH (17:00)
[2018-04-22] MEDS ORDERED: TAMSULOSIN HCL 0.4 MG CAP PO SCH (21:00)
--- NOTE | 2018-04-22 22:42 | Progress Note ---
DATE: April 22, 2018 GI PROGRESS NOTE SUBJECTIVE: Patient reports no abdominal pain. Tolerating oral feeds. Regular BMs. He is likely going to be discharged to [facility] today. OBJECTIVE VITAL SIGNS: Temperature 97.3, pulse 57, respirations 18, blood pressure 157/72, oxygen saturation 98% on room air. GENERAL: Not in any acute distress. Sitting comfortably at the bedside couch. HEENT: Oral mucosa is moist. Anicteric sclerae. CVS: S1, S2. Regular. LUNGS: Bilaterally grossly clear. ABDOMEN: Soft, nondistended, nontender. No mass or hernia. Positive bowel sound. EXTREMITIES: Warm. No leg edema. LABS: Last lab is available from April 20, 2018. WBC 6.02, hemoglobin 9.7, hematocrit 30.4, and platelet count 106,000. Sodium 139, potassium 3.7, chloride 110, bicarb 21, BUN 5, creatinine 0.77. Modified barium swallow on April 21, showed no penetration or aspiration. IMPRESSION 1. Anemia of chronic disease. 2. Esophagogastroduodenoscopy and colonoscopy revealed no source of blood loss. Had biopsies performed. Gastric biopsy showed antral mucosa with intestinal metaplasia. Negative for Helicobacter pylori infection. 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 PLAN 1. From GI standpoint, patient can be discharged home. Monitor hemoglobin as an outpatient. 2. Surveillance upper endoscopy in 3 to 6 months for Foote esophagus. Job#: [id number]
[2018-04-23] MEDS ORDERED: HYDROCHLOROTHIAZIDE 25 MG TAB PO SCH (09:00)
[2018-04-23] MEDS ORDERED: DOXAZOSIN MESYLATE 2 MG TAB PO SCH (09:00)
[2018-04-23] MEDS ORDERED: LOSARTAN POTASSIUM 25 MG TAB PO SCH (09:00)
[2018-04-23] MEDS ORDERED: PANTOPRAZOLE SOD 40 MG TABEC PO SCH (09:00)
[2018-04-23] MEDS ORDERED: NON-FORMULARY MEDICATION (Hydrochlorothiazide 12.5 MG) PO SCH (09:00)
== END 2018-04-22 18:42 | DRG 682 ==
LOC: ER 08:47 → IMCU 15:12 → OBSVTOIN 04-17 09:30 → MED/SURG 04-17 17:04
PROVIDERS: ADMIT Internal Medicine; ATTEND Internal Medicine
PROC: 0DB38ZX Excision of Lower Esophagus, Via Natural or Artificial Opening Endoscopic, Diagnostic (ICD-10-PCS; 2018-04-18)
PROC: 0DB78ZX Excision of Stomach, Pylorus, Via Natural or Artificial Opening Endoscopic, Diagnostic (ICD-10-PCS; 2018-04-18)
PROC: 0DB68ZX Excision of Stomach, Via Natural or Artificial Opening Endoscopic, Diagnostic (ICD-10-PCS; 2018-04-18)
PROC: 0DBK8ZX Excision of Ascending Colon, Via Natural or Artificial Opening Endoscopic, Diagnostic (ICD-10-PCS; principal; 2018-04-18 13:43)
PROC: 0DBL8ZX Excision of Transverse Colon, Via Natural or Artificial Opening Endoscopic, Diagnostic (ICD-10-PCS; 2018-04-18 13:43)
DX: N17.9 Acute kidney failure, unspecified (principal); G93.41 Metabolic encephalopathy; J18.9 Pneumonia, unspecified organism; N39.0 Urinary tract infection, site not specified; K76.6 Portal hypertension; E44.0 Moderate protein-calorie malnutrition; E87.5 Hyperkalemia; F03.90 Unspecified dementia, unspecified severity, without behavioral disturbance, psychotic disturbance, mood disturbance, and anxiety; E86.0 Dehydration; N40.1 Benign prostatic hyperplasia with lower urinary tract symptoms; R33.8 Other retention of urine; D72.829 Elevated white blood cell count, unspecified; K57.30 Diverticulosis of large intestine without perforation or abscess without bleeding; Z74.01 Bed confinement status; J44.9 Chronic obstructive pulmonary disease, unspecified; K22.5 Diverticulum of esophagus, acquired; D63.8 Anemia in other chronic diseases classified elsewhere; K22.719 Barrett's esophagus with dysplasia, unspecified; N20.0 Calculus of kidney; K44.9 Diaphragmatic hernia without obstruction or gangrene; K74.60 Unspecified cirrhosis of liver; D69.59 Other secondary thrombocytopenia; D12.2 Benign neoplasm of ascending colon; D12.3 Benign neoplasm of transverse colon; R62.7 Adult failure to thrive
CPT/HCPCS: 36415; 43239; 45385; 71046; 74176; 74230; 80048; 80053; 81001; 82150; 82270; 82550; 82553; 82728; 82948; 83540; 83690; 83880; 84466; 84484; 85007; 85025; 85027; 87040; 87086; 88305; 88312; 93005; 97139; 99284; G0378; J0696; J7030